=== PATIENT | female | born 1990 | race Two or more races ===

== ENCOUNTER 2019-10-08 00:43 | Inpatient (IN) | payer OTHER, MEDICAID ==
[~2019-10-08] VITALS: Ht 152.4 cm; Wt 73.5 kg
[2019-10-08 01:35] LABS: BILIRUBIN,URINE NEGATIVE (NEG); CLARITY,URINE CLEAR; COLOR,URINE YELLOW; NITRITE,URINE NEGATIVE (NEG); PH,URINE 7.5 (<5.0-8.0); PROTEIN,URINE NEGATIVE (NEG-TRACE); UROBILINOGEN,URINE 0.2 mg/dL (0.2 mg/dL)
[2019-10-08 01:40] LABS: BACTERIA,URINE MODERATE /HPF (0-FEW); SQUAMOUS EPITHELIAL CELL,UR MANY /LPF
[2019-10-08] MEDS: IV RINGERS,LACTATED 1000ML 1,000 ML IV SCH ×4 (01:50→21:33)
[2019-10-08 01:54] LABS: BARBITURATES NEG (NEG); BENZODIAZEPINES NEG (NEG); CANNABINOIDS NEG (NEG); COCAINE NEG (NEG); METHADONE NEG (NEG); OPIATES NEG (NEG); PHENCYCLIDINE NEG (NEG)
[2019-10-08 01:56] LABS: AMPHETAMINE/METHAMPHETAMINE NEG (NEG)
[2019-10-08] MEDS ORDERED: fentaNYL PF VIAL 100 MCG/2 ML VIAL IM ONE (03:00)
--- NOTE | 2019-10-08 04:00 | RAD ---
Obstetric ultrasound limited: Reason for examination: Unsure of presentation and estimated date of confinement. Single viable intrauterine gestation is present with the fetus in cephalic presentation. The cervical does not visualize. Cardiac activity is present with a rate of 137 bpm. Amniotic fluid index is 4.7 cm. The placenta is anterior with no previa or abruption evident. Biparietal diameter is 9.43 cm corresponding to gestational age 38 weeks 3 days. Head circumference is 33.84 cm corresponding to gestational age of 38 weeks 6 days. Abdominal circumference is 34.48 cm corresponding to gestational age 38 weeks 3 days. Femur length is 7.43 cm corresponding to gestational age of 38 weeks 0 days. Estimated weight is 34 71 g or approximately 7 lbs. 10 oz. Cephalic index is 83.9. Head circumference to abdominal circumference ratio is 0.98. Femur length to biparietal diameter ratio 70.8. Femur length to head circumference ratio is 22.0. Femur length to abdominal circumference ratio is 21.8. Estimated gestational age is 38 weeks 3 days with estimated date of confinement of 10/19/2019. IMPRESSION: Single viable intrauterine gestation with mean gestational age estimated at 38 weeks 3 days with estimated date of confinement of 10/19/2019. Fetus is in cephalic presentation. Cervix is not visualized. Amniotic fluid index is 4.7 cm. Placenta is anterior with no previa or abruption. Electronically signed by: Andressa Carranza MD (10/08/2019 3:57 AM) [id number]
[2019-10-08] MEDS ORDERED: IBUPROFEN 400 MG TABLET. PO PRN (04:45)
[2019-10-08] MEDS ORDERED: OXYTOCIN 30 UNIT/500 ML PREMIX 500 ML IV PRN ×3 (04:45→09:45)
[2019-10-08] MEDS ORDERED: 0.9 % SODIUM CHLORIDE 10 ML DISP.SYRIN. IV PRN ×2 (04:45→09:45)
[2019-10-08] MEDS ORDERED: BUTORPHANOL 2 MG/ML VIAL. IVP PRN (04:45)
[2019-10-08] MEDS ORDERED: LIDOCAINE 1% PF 30 ML VIAL. INJ PRN (04:45)
[2019-10-08] MEDS ORDERED: TERBUTALINE 1 MG/ML VIAL. SQ PRN (04:45)
[2019-10-08 05:30] LABS: BASO # 0.1 x10^3/uL (0.0-0.2); BASO % 0 % (0-3); EOS # 0.1 x10^3/uL (0.0-0.7); EOS % 1 % (0-3); HEMATOCRIT 35.1 % (36.0-47.0); HEMOGLOBIN 12.1 g/dL (12.0-15.5); LYMPH # 2.6 x10^3/uL (1.0-4.8); LYMPH % 16 % (24-48); MEAN CORPUSCULAR HEMOGLOBIN 34 pg (25-35); MEAN CORPUSCULAR HGB CONC 34 g/dL (31-37); MEAN CORPUSCULAR VOLUME 97 fL (79-100); MONO # 0.8 x10^3/uL (0.0-1.1); MONO % 5 % (0-9); NEUT # 12.7 x10^3/uL (1.8-7.7); NEUT % 78 % (31-73); PLATELET COUNT 339 x10^3/uL (140-400); RED BLOOD COUNT 3.61 x10^6/uL (3.50-5.40); WHITE BLOOD COUNT 16.3 x10^3/uL (4.0-11.0)
[2019-10-08] MEDS ORDERED: OXYTOCIN PREMIX 30 UNIT/500 ML NS BAG. IV ONE (06:00)
--- NOTE | 2019-10-08 07:28 | PDOC1 ---
OB - History Hx of Present Care: Good Care Ultrasounds: Normal mid trimester US Obstetrical Complications: None Medical Complications: None Past Family/Social History * Past Medical, Surgical, Family and Obstetric Histories reviewed from chart. Rubella: Immune RPR/VDRL: Negative GBS Status: Negative HBsAG: Negative OB - Chief Complaint & HPI Date of Admission: Date of Admission: Oct 08, 2019 at 00:43 Chief Complaint/History : 2 Para: 1 EGA: 37 Reason for admission: active labor Admission Nurse Assessment Rev: Yes OB - Admission Exam Physical Exam Vitals: VS - Last 72 Hours, by Label Date Time Temp Pulse Resp B/P (MAP) Pulse Ox O2 Delivery O2 Flow Rate FiO2 10/08/19 05:30 18 Room Air 10/08/19 05:05 18 Room Air 10/08/19 02:54 18 HEENT: Normal Heart: Regular Rate Lungs: Clear Abdomen: Gravid, Non tender, Soft Extremities: Edema Reflexes: Normal Cervical Dilatation: 3cm Effacement: 75% Station: -3 Membranes: Intact Heart Rate: Normal Accelerations: Accelerations Present Decelerations: No decelerations Contractions on Admission: 6-10 Minutes Apart Intensity: Moderate Text A: 37 wks IUP Active labor P: Admit labor management. SHANEKA SIGALA Jr, MD Oct 08, 2019 07:28
[2019-10-08] MEDS ORDERED: CITRIC ACID/SODIUM CITRATE 30 ML SOLUTION. PO ONE (07:45)
[2019-10-08] MEDS ORDERED: fentaNYL PF VIAL 100 MCG/2 ML VIAL ONE (08:39)
[2019-10-08] MEDS ORDERED: MORPHINE PF 10 MG/10 ML AMPUL. ONE (08:39)
[2019-10-08] MEDS ORDERED: SUCCINYLCHOLINE 200 MG/10 ML VIAL. ONE (08:41)
[2019-10-08] MEDS ORDERED: SEVOFLURANE 61 TO 120 MINUTES. IH ONE (08:42)
[2019-10-08] MEDS ORDERED: PROPOFOL 10 MG/ML (20ML) VIAL. IV ONE (08:42)
[2019-10-08] MEDS ORDERED: DEXAMETHASONE SOD PHOS 4 MG/ML VIAL ONE (08:42)
[2019-10-08] MEDS ORDERED: ONDANSETRON PF 4 MG/2 ML VIAL. ONE (08:42)
[2019-10-08] MEDS ORDERED: LIDOCAINE 2% PF 5 ML VIAL. ONE (08:42)
[2019-10-08] MEDS ORDERED: OXYTOCIN 10 UNIT/ML VIAL. ONE ×5 (08:46→09:35)
[2019-10-08] MEDS ORDERED: miSOPROStol 200 MCG TABLET ONE (09:00)
[2019-10-08] MEDS ORDERED: PHENYLEPHRINE in 0.9% NACL PF 1 MG/10 ML SYRINGE. IV ONE (09:01)
[2019-10-08] MEDS ORDERED: ceFAZolin SODIUM IV Push 1 GM VIAL. IVP ONE ×2 (09:05)
[2019-10-08 09:07] LABS: % BANDS 25 % (0-9); % LYMPHS 14 % (24-48); % METAS 1 % (0-0); % MONOS 8 % (0-10); % MYELOS 1 % (0-0); % SEGS 51 % (35-66)
[2019-10-08 09:08] LABS: PLT ESTIMATE ADEQUATE (ADEQUATE)
[2019-10-08] MEDS ORDERED: ePHEDrine PF IN SALINE 50 MG/10 ML SYRINGE. IV ONE (09:11)
[2019-10-08] MEDS: FERROUS SULFATE 325 MG TABLET. PO SCH (09:20)
[2019-10-08] MEDS ORDERED: IV NORMAL SALINE 1000ML BAG 1,000 ML IV SCH (09:34)
--- NOTE | 2019-10-08 09:34 | PDOC4 ---
OB Operative Note Date: Oct 08, 2019 PRE OP DIAGNOSIS: NRFHT (FTD) POST OP DIAGNOSIS: Other (same) OPERATION PERFORMED: L [facility] Surgeon Dr. Cooney Anesthesia: Gen Blood Loss 600 ml Specimen placenta and infant OB Findings: Position (Vertex), Sex (Male), (8/9), Weight (8 Lb 12 oz) Complications none Additional Remarks pt. SHANEKA Goldstein Jr, MD Oct 08, 2019 09:34
[2019-10-08] MEDS ORDERED: NALOXONE 0.4 MG/ML VIAL. IV PRN (09:45)
[2019-10-08] MEDS ORDERED: MAG HYDROX/ALUMINUM HYD/SIMETH 30 ML ORAL.SUSP PO PRN (09:45)
[2019-10-08] MEDS ORDERED: diphenhydrAMINE ORAL ELIXIR 12.5 MG/5 ML ML PO PRN (09:45)
[2019-10-08] MEDS ORDERED: ONDANSETRON PF 4 MG/2 ML VIAL. IV PRN (09:45)
[2019-10-08] MEDS ORDERED: ZOLPIDEM 5 MG TABLET. PO PRN (09:45)
[2019-10-08] MEDS ORDERED: SIMETHICONE 80 MG TAB.CHEW PO PRN (09:45)
[2019-10-08] MEDS ORDERED: KETOROLAC 30 MG/ML VIAL. IV PRN ×2 (09:45→10:15)
--- NOTE | 2019-10-08 09:48 | OP ---
DATE OF SURGERY: 10/08/2019 PREOPERATIVE DIAGNOSES: 1. A 37 weeks intrauterine . 2. Active labor. 3. Failure to descend. 4. intolerance to labor. POSTOPERATIVE DIAGNOSES: 1. A 37 weeks intrauterine . 2. Active labor. 3. Failure to descend. 4. intolerance to labor. PROCEDURE: Primary low transverse section. SURGEON: Shaneka Cooney MD ANESTHESIA: GETA. ESTIMATED BLOOD LOSS: 600 mL. COMPLICATIONS: None. FINDINGS: Viable male infant, Apgars 8 and 9, weight 8 pounds 12 ounces. Three-vessel cord placenta delivered manually. SUMMARY: A 29-year-old 2, para 1 at 37 weeks, presented in active labor. The patient had progressed up to 10 cm. She had pushed for almost 2 hours and then began having intolerance to labor. The patient required emergent section. She was counseled on the risks, benefits, and expectations and voiced clear understanding to proceed via the gis application developer. DESCRIPTION OF PROCEDURE: The patient was taken to surgery suite and placed in dorsal supine position. She was prepped with ChloraPrep and draped in a sterile fashion. After adequate anesthesia, Pfannenstiel skin incision was made with scalpel down to and through the fascia. Fascia was extended laterally using curved Combs scissors. The superior edge of the fascia was grasped with two Kaitlin clamps and dissected free of the abdominal rectus muscle using blunt dissection along with curved Combs scissors. The same process took place inferiorly. The abdominal rectus muscle dissected bluntly at the midline. Peritoneum was entered sharply with Metzenbaum scissors. This incision was extended superiorly as well as inferiorly. Ez ring retractor was placed. A low transverse hysterotomy incision was made with scalpel down to the . Hysterotomy incision was extended laterally and superiorly digitally. With the aid of fundal pressure, the 's head was delivered in a smooth atraumatic manner. With additional fundal pressure, the anterior shoulder was delivered followed by posterior shoulder and rest of the male was delivered. Infant was suctioned with bulb syringe orally and nasally, umbilical cord blood was then obtained as well as arterial pH was obtained. was handed to waiting nursing staff. Three-vessel cord placenta was delivered manually. The uterus was then exteriorized, cleared of clot and debris with moist lap. Hysterotomy incision was reapproximated using #1 Vicryl suture in running locked fashion and imbricated layer of #1 Vicryl suture was utilized in a running fashion for better hemostasis. [id number] suture was placed in the midline of the hysterotomy incision for better hemostasis. An 800 mcg of Cytotec was placed intrauterinely prior to closure of the uterine incision. The uterus then palpated firm. Fallopian tubes and ovaries appeared normal bilaterally. Posterior cul-de-sac was cleared of clot and debris with moist lap. The uterus was then returned to the abdomen. Pericolic gutters were cleared of clot and debris with moist lap. Hysterotomy incision was reviewed and was hemostatic. Ez ring retractor was removed. Peritoneum was reapproximated with #1 Vicryl suture in running fashion. Abdominal rectus muscles were reapproximated using #1 Vicryl suture in an interrupted fashion. Fascia was reapproximated using 0 Vicryl suture in running fashion. Skin was reapproximated using 4-0 Vicryl suture in subcuticular manner. The patient tolerated the procedure well and was taken to recovery room in stable condition. Sponge and needle count correct x 3. SHANEKA COONEY MD DR: OBDULIA/maite JOB#: [id number] / [id number]
[2019-10-08 15:02] VITALS: BP 114/63
[2019-10-08 16:30] VITALS: BP 119/64
[2019-10-08 20:15] VITALS: BP 100/53
[2019-10-08 21:05] VITALS: BP 98/56
[2019-10-08] MEDS: ACETAMINOPHEN 500 MG TABLET PO PRN (21:34)
[2019-10-08] MEDS: GENTAMICIN SULFATE 230 MG in IV NORMAL SALINE 100ML 100 ML IV SCH (21:36)
[2019-10-08] MEDS: AMPICILLIN SODIUM 2 GM in IV NORMAL SALINE 100ML 100 ML IV SCH (22:46)
[2019-10-09] MEDS ORDERED: SULBACTAM IV SCH
[2019-10-09] MEDS ORDERED: NORMAL SALINE IV SCH
[2019-10-09] MEDS ORDERED: AMPICILLIN IV SCH
[2019-10-09 01:00] VITALS: BP 95/50
[2019-10-09 04:41] LABS: BASO % 0 % (0-3); EOS # 0.1 x10^3/uL (0.0-0.7); EOS % 0 % (0-3); HEMATOCRIT 28.6 % (36.0-47.0); HEMOGLOBIN 9.7 g/dL (12.0-15.5); LYMPH # 3.5 x10^3/uL (1.0-4.8); LYMPH % 22 % (24-48); MEAN CORPUSCULAR HEMOGLOBIN 33 pg (25-35); MEAN CORPUSCULAR HGB CONC 34 g/dL (31-37); MEAN CORPUSCULAR VOLUME 98 fL (79-100); MONO % 6 % (0-9); NEUT # 11.2 x10^3/uL (1.8-7.7); NEUT % 71 % (31-73); PLATELET COUNT 293 x10^3/uL (140-400); RED BLOOD COUNT 2.91 x10^6/uL (3.50-5.40); RED CELL DISTRIBUTION WIDTH 14.6 % (11.5-14.5); WHITE BLOOD COUNT 15.8 x10^3/uL (4.0-11.0)
[2019-10-09] MEDS: AMPICILLIN SODIUM 2 GM in IV NORMAL SALINE 100ML 100 ML IV SCH ×5 (04:56→23:35)
[2019-10-09 05:00] VITALS: BP 87/52
[2019-10-09] MEDS: IV RINGERS,LACTATED 1000ML 1,000 ML IV SCH (06:03)
[2019-10-09] MEDS: ACETAMINOPHEN 500 MG TABLET PO PRN (08:10)
[2019-10-09] MEDS: MULTIVITAMIN with MINERAL TABLET. PO SCH (08:11)
--- NOTE | 2019-10-09 09:04 | PDOC ---
OB Progress Note Date of Service 10/09/19 Time of Evaluation 0900 Notes Pt. feeling well. Pt. continues to have edematous vulva and will keep bustillo cath. Lab Laboratory Tests Test 10/08/19 01:29 10/08/19 01:45 10/08/19 02:50 10/09/19 03:30 Urine Collection Type Unknown Urine Color Yellow Urine Clarity Clear Urine pH 7.5 (<5.0-8.0) Urine Specific [place] 1.015 (1.000-1.030) Urine Protein Negative mg/dL (NEG-TRACE) Urine Glucose (UA) Negative mg/dL (NEG) Urine Ketones (Stick) Negative mg/dL (NEG) Urine Blood Moderate (NEG) Urine Nitrite Negative (NEG) Urine Bilirubin Negative (NEG) Urine Urobilinogen Dipstick 0.2 mg/dL (0.2 mg/dL) Urine Leukocyte Esterase Small (NEG) Urine RBC 3-5 /HPF (0-2) Urine WBC 5-10 /HPF (0-4) Urine Squamous Epithelial Cells Many /LPF Urine Bacteria Moderate /HPF (0-FEW) Urine Mucus Slight /LPF Urine Opiates Screen Neg (NEG) Urine Methadone Screen Neg (NEG) Urine Barbiturates Neg (NEG) Urine Phencyclidine Screen Neg (NEG) Urine Amphetamine/Methamphetamine Neg (NEG) Urine Benzodiazepines Screen Neg (NEG) Urine Cocaine Screen Neg (NEG) Urine Cannabinoids Screen Neg (NEG) Urine Ethyl Alcohol Neg (NEG) White Blood Count 16.3 x10^3/uL (4.0-11.0) 15.8 x10^3/uL (4.0-11.0) Red Blood Count 3.61 x10^6/uL (3.50-5.40) 2.91 x10^6/uL (3.50-5.40) Hemoglobin 12.1 g/dL (12.0-15.5) 9.7 g/dL (12.0-15.5) Hematocrit 35.1 % (36.0-47.0) 28.6 % (36.0-47.0) Mean Corpuscular Volume 97 fL (79-100) 98 fL (79-100) Mean Corpuscular Hemoglobin 34 pg (25-35) 33 pg (25-35) Mean Corpuscular Hemoglobin Concent 34 g/dL (31-37) 34 g/dL (31-37) Red Cell Distribution Width 15.0 % (11.5-14.5) 14.6 % (11.5-14.5) Platelet Count 339 x10^3/uL (140-400) 293 x10^3/uL (140-400) Neutrophils (%) (Auto) 78 % (31-73) 71 % (31-73) Lymphocytes (%) (Auto) 16 % (24-48) 22 % (24-48) Monocytes (%) (Auto) 5 % (0-9) 6 % (0-9) Eosinophils (%) (Auto) 1 % (0-3) 0 % (0-3) Basophils (%) (Auto) 0 % (0-3) 0 % (0-3) Neutrophils # (Auto) 12.7 x10^3/uL (1.8-7.7) 11.2 x10^3/uL (1.8-7.7) Lymphocytes # (Auto) 2.6 x10^3/uL (1.0-4.8) 3.5 x10^3/uL (1.0-4.8) Monocytes # (Auto) 0.8 x10^3/uL (0.0-1.1) 1.0 x10^3/uL (0.0-1.1) Eosinophils # (Auto) 0.1 x10^3/uL (0.0-0.7) 0.1 x10^3/uL (0.0-0.7) Basophils # (Auto) 0.1 x10^3/uL (0.0-0.2) 0.0 x10^3/uL (0.0-0.2) Segmented Neutrophils % 51 % (35-66) Band Neutrophils % 25 % (0-9) Lymphocytes % 14 % (24-48) Monocytes % 8 % (0-10) Metamyelocytes % 1 % (0-0) Myelocytes % 1 % (0-0) Platelet Estimate Adequate (ADEQUATE) Treponema pallidum Antibody Nonreactive (Nonreactive) Coronavirus (PCR) Not detected (Not Detected) SARS-CoV-2 Antigen (Rapid) Negative (NEGATIVE) Laboratory Tests Test 10/09/19 03:30 White Blood Count 15.8 x10^3/uL (4.0-11.0) Red Blood Count 2.91 x10^6/uL (3.50-5.40) Hemoglobin 9.7 g/dL (12.0-15.5) Hematocrit 28.6 % (36.0-47.0) Mean Corpuscular Volume 98 fL (79-100) Mean Corpuscular Hemoglobin 33 pg (25-35) Mean Corpuscular Hemoglobin Concent 34 g/dL (31-37) Red Cell Distribution Width 14.6 % (11.5-14.5) Platelet Count 293 x10^3/uL (140-400) Neutrophils (%) (Auto) 71 % (31-73) Lymphocytes (%) (Auto) 22 % (24-48) Monocytes (%) (Auto) 6 % (0-9) Eosinophils (%) (Auto) 0 % (0-3) Basophils (%) (Auto) 0 % (0-3) Neutrophils # (Auto) 11.2 x10^3/uL (1.8-7.7) Lymphocytes # (Auto) 3.5 x10^3/uL (1.0-4.8) Monocytes # (Auto) 1.0 x10^3/uL (0.0-1.1) Eosinophils # (Auto) 0.1 x10^3/uL (0.0-0.7) Basophils # (Auto) 0.0 x10^3/uL (0.0-0.2) Medications Current Medications Ringer's Solution 1,000 ml @ 125 mls/hr Q8H IV Last administered on 10/09/19at 06:03; Start 10/08/19 at 01:00 Fentanyl Citrate (Fentanyl 2ml Vial) 100 mcg 1X ONCE IM Last administered on 10/08/19at 02:54; Start 10/08/19 at 03:00; Stop 10/08/19 at 03:01; Status DC Sodium Chloride (Normal Saline Flush) 3 ml QSHIFT PRN IV AFTER MEDS AND BLOOD DRAWS; Start 10/08/19 at 04:45 Butorphanol Tartrate (Stadol) 2 mg PRN Q1HR PRN IVP Severe labor pain Last administered on 10/08/19at 05:05; Start 10/08/19 at 04:45; Stop 10/08/19 at 09:36; Status DC Terbutaline Sulfate (Brethine) 0.25 mg 1X PRN PRN SQ SEE COMMENTS; Start 10/08/19 at 04:45; Stop 10/09/19 at 04:45; Status DC Lidocaine HCl (Xylocaine 1% Pf 30ml Vial) 30 ml 1X PRN PRN INJ SEE COMMENTS; Start 10/08/19 at 04:45; Stop 10/10/19 at 04:44 Oxytocin/Sodium Chloride 500 ml @ 0 mls/hr CONT PRN IV SEE I/O RECORD; Start 10/08/19 at 04:45 Oxytocin/Sodium Chloride 500 ml @ 0 mls/hr CONT PRN PRN IV Post delivery bleeding; Start 10/08/19 at 04:45 Ibuprofen (Motrin) 800 mg PRN Q6HRS PRN PO PAIN; Start 10/08/19 at 04:45 Citric Acid/ Sodium Citrate (Bicitra) 30 ml 1X ONCE PO Last administered on 10/08/19at 08:28; Start 10/08/19 at 07:45; Stop 10/08/19 at 07:48; Status DC Morphine Sulfate (Morphine Preservative Free) 10 mg STK-MED ONCE .ROUTE ; Start 10/08/19 at 08:39; Stop 10/08/19 at 08:39; Status DC Fentanyl Citrate (Fentanyl 2ml Vial) 100 mcg STK-MED ONCE .ROUTE ; Start 10/08/19 at 08:39; Stop 10/08/19 at 08:39; Status DC Succinylcholine Chloride (Anectine) 200 mg STK-MED ONCE .ROUTE ; Start 10/08/19 at 08:41; Stop 10/08/19 at 08:42; Status DC Propofol (Diprivan) 200 mg STK-MED ONCE IV ; Start 10/08/19 at 08:42; Stop 10/08/19 at 08:42; Status DC Lidocaine HCl (Lidocaine Pf 2% Vial) 5 ml STK-MED ONCE .ROUTE ; Start 10/08/19 at 08:42; Stop 10/08/19 at 08:42; Status DC Ondansetron HCl (Zofran) 4 mg STK-MED ONCE .ROUTE ; Start 10/08/19 at 08:42; Stop 10/08/19 at 08:42; Status DC Dexamethasone Sodium Phosphate (Decadron) 4 mg STK-MED ONCE .ROUTE ; Start 10/08/19 at 08:42; Stop 10/08/19 at 08:42; Status DC Sevoflurane (Ultane) 60 ml STK-MED ONCE IH ; Start 10/08/19 at 08:42; Stop 10/08/19 at 08:43; Status DC Oxytocin (Pitocin) 10 unit STK-MED ONCE .ROUTE ; Start 10/08/19 at 08:46; Stop 10/08/19 at 08:46; Status DC Oxytocin (Pitocin) 10 unit STK-MED ONCE .ROUTE ; Start 10/08/19 at 08:46; Stop 10/08/19 at 08:46; Status DC Oxytocin (Pitocin) 10 unit STK-MED ONCE .ROUTE ; Start 10/08/19 at 08:46; Stop 10/08/19 at 08:46; Status DC Oxytocin/Sodium Chloride (Oxytocin Premix Infusion) 30 unit STK-MED ONCE IV ; Start 10/08/19 at 06:00; Stop 10/08/19 at 08:59; Status DC Misoprostol (Cytotec 200mcg Tab) 200 mcg STK-MED ONCE .ROUTE ; Start 10/08/19 at 09:00; Stop 10/08/19 at 09:01; Status DC Phenylephrine HCl (PHENYLEPHRINE in 0.9% NACL PF) 1 mg STK-MED ONCE IV ; Start 10/08/19 at 09:01; Stop 10/08/19 at 09:01; Status DC Cefazolin Sodium (Ancef) 1 gm STK-MED ONCE IVP ; Start 10/08/19 at 09:05; Stop 10/08/19 at 09:05; Status DC Cefazolin Sodium (Ancef) 1 gm STK-MED ONCE IVP ; Start 10/08/19 at 09:05; Stop 10/08/19 at 09:05; Status DC Ephedrine Sulfate (ePHEDrine PF IN SALINE SYRINGE) 50 mg STK-MED ONCE IV ; Start 10/08/19 at 09:11; Stop 10/08/19 at 09:11; Status DC Oxytocin (Pitocin) 10 unit STK-MED ONCE .ROUTE ; Start 10/08/19 at 09:35; Stop 10/08/19 at 09:35; Status DC Oxytocin (Pitocin) 10 unit STK-MED ONCE .ROUTE ; Start 10/08/19 at 09:35; Stop 10/08/19 at 09:35; Status DC Sodium Chloride (Normal Saline Flush) 3 ml QSHIFT PRN IV AFTER MEDS AND BLOOD DRAWS; Start 10/08/19 at 09:45 Oxytocin/Sodium Chloride 500 ml @ 125 mls/hr CONT PRN IV EXCESSIVE POST- BLEEDING; Start 10/08/19 at 09:45; Stop 10/08/19 at 17:44; Status DC Ibuprofen (Motrin) 800 mg PRN Q8HRS PRN PO INFLAMMATION; Start 10/08/19 at 09:45 Ondansetron HCl (Zofran) 4 mg PRN Q6HRS PRN IV NAUSEA/VOMITING; Start 10/08/19 at 09:45 Docusate Sodium (Colace) 100 mg PRN BID PRN PO HARD STOOL; Start 10/08/19 at 09:45 Al Hydroxide/Mg Hydroxide (Mylanta Plus Xs) 30 ml PRN Q4HRS PRN PO HEARTBURN / GAS; Start 10/08/19 at 09:45 Simethicone (Gas-X) 80 mg PRN AFTMEALHC PRN PO GAS / BLOATING; Start 10/08/19 at 09:45 Diphenhydramine HCl (Benadryl Oral Elixir) 12.5 mg PRN Q6HRS PRN PO ITCHING; Start 10/08/19 at 09:45 Ferrous Sulfate (Feosol) 325 mg BIDWMEALS PO ; Start 10/08/19 at 17:00 Zolpidem Tartrate (Ambien) 5 mg PRN QHS PRN PO INSOMNIA, MAY REPEAT X1; Start 10/08/19 at 09:45 Oxycodone/ Acetaminophen (Percocet 5/325) 2 tab PRN Q4HRS PRN PO MODERATE PAIN, SEVERE PAIN; Start 10/08/19 at 09:45 Ketorolac Tromethamine (Toradol 30mg Vial) 30 mg PRN Q6HRS PRN IV PAIN Last administered on 10/09/19at 08:11; Start 10/08/19 at 09:45; Stop 10/13/19 at 09:44 Multivitamins (Thera M Plus) 1 tab DAILY PO Last administered on 10/09/19at 08:11; Start 10/09/19 at 09:00 Fentanyl Citrate 30 ml @ 0 mls/hr CONT PRN PRN IV PER PROTOCOL Last administered on 10/08/19at 10:24; Start 10/08/19 at 09:45 Naloxone HCl (Narcan) 0.4 mg PRN Q2MIN PRN IV SEE INSTRUCTIONS; Start 10/08/19 at 09:45 Sodium Chloride 1,000 ml @ 25 mls/hr Q24H IV ; Start 10/08/19 at 09:34 Ketorolac Tromethamine (Toradol 30mg Vial) 30 mg PRN Q6HRS PRN IV PAIN; Start 10/08/19 at 10:15; Stop 10/13/19 at 10:14 Ampicillin Sodium/ Sulbactam Sodium 2 gm/Sodium Chloride 100 ml @ 200 mls/hr Q6HRS IV ; Start 10/09/19 at 00:00; Status UNV Gentamicin Sulfate 230 mg/ Sodium Chloride 105.75 ml @ 105.75 mls/hr Q24H IV Last administered on 10/08/19at 21:36; Start 10/08/19 at 22:00 Acetaminophen (Tylenol) 1,000 mg PRN Q6HRS PRN PO FEVER > 100.3'F Last admini stered on 10/09/19at 08:10; Start 10/08/19 at 21:15 Ampicillin Sodium 2 gm/Sodium Chloride 100 ml @ 200 mls/hr Q6HRS IV Last ad ministered on 10/09/19at 04:56; Start 10/08/19 at 23:00 Exam Abd: soft, mild tenderness, fundus firm Incision site: clean, dry and intact Assessment POD#1 s/p c/s Post endometritis: Tmax 100.8 'F Plan of Care: Continue current Tx, Mgmt SHANEKA SIGALA Jr, MD Oct 09, 2019 09:04
[2019-10-09] MEDS: DOCUSATE SODIUM 100 MG CAPSULE. PO PRN (12:24)
[2019-10-09] MEDS: oxyCODONE/APAP 5/325 1 TAB TABLET PO PRN ×2 (12:24→20:02)
[2019-10-09 13:00] VITALS: BP 108/57
[2019-10-09 20:08] VITALS: BP 108/65
[2019-10-09] MEDS: GENTAMICIN SULFATE 230 MG in IV NORMAL SALINE 100ML 100 ML IV SCH (22:03)
[2019-10-10] VITALS: BP 101/55
[2019-10-10] MEDS: AMPICILLIN SODIUM 2 GM in IV NORMAL SALINE 100ML 100 ML IV SCH ×3 (05:39→20:41)
[2019-10-10 05:54] VITALS: BP 112/72
[2019-10-10] MEDS: oxyCODONE/APAP 5/325 1 TAB TABLET PO PRN ×4 (06:33→21:38)
[2019-10-10] MEDS ORDERED: MAGNESIUM HYDROXIDE 2,400 MG/30 ML ORAL.SUSP. PO PRN (07:15)
[2019-10-10] MEDS: FERROUS SULFATE 325 MG TABLET. PO SCH ×2 (10:47→17:52)
[2019-10-10] MEDS: MULTIVITAMIN with MINERAL TABLET. PO SCH (10:47)
[2019-10-10] MEDS: DOCUSATE SODIUM 100 MG CAPSULE. PO PRN (10:47)
[2019-10-10 12:04] VITALS: BP 102/68
--- NOTE | 2019-10-10 12:17 | PDOC ---
OB Progress Note Date of Service 10/10/19 Time of Evaluation 1215 Notes Pt. feeling well. Pain controlled. Last Tmax 99'F. Lab Laboratory Tests Test 10/09/19 03:30 White Blood Count 15.8 x10^3/uL (4.0-11.0) Red Blood Count 2.91 x10^6/uL (3.50-5.40) Hemoglobin 9.7 g/dL (12.0-15.5) Hematocrit 28.6 % (36.0-47.0) Mean Corpuscular Volume 98 fL (79-100) Mean Corpuscular Hemoglobin 33 pg (25-35) Mean Corpuscular Hemoglobin Concent 34 g/dL (31-37) Red Cell Distribution Width 14.6 % (11.5-14.5) Platelet Count 293 x10^3/uL (140-400) Neutrophils (%) (Auto) 71 % (31-73) Lymphocytes (%) (Auto) 22 % (24-48) Monocytes (%) (Auto) 6 % (0-9) Eosinophils (%) (Auto) 0 % (0-3) Basophils (%) (Auto) 0 % (0-3) Neutrophils # (Auto) 11.2 x10^3/uL (1.8-7.7) Lymphocytes # (Auto) 3.5 x10^3/uL (1.0-4.8) Monocytes # (Auto) 1.0 x10^3/uL (0.0-1.1) Eosinophils # (Auto) 0.1 x10^3/uL (0.0-0.7) Basophils # (Auto) 0.0 x10^3/uL (0.0-0.2) Medications Current Medications Ringer's Solution 1,000 ml @ 125 mls/hr Q8H IV Last administered on 10/09/19at 06:03; Start 10/08/19 at 01:00 Fentanyl Citrate (Fentanyl 2ml Vial) 100 mcg 1X ONCE IM Last administered on 10/08/19at 02:54; Start 10/08/19 at 03:00; Stop 10/08/19 at 03:01; Status DC Sodium Chloride (Normal Saline Flush) 3 ml QSHIFT PRN IV AFTER MEDS AND BLOOD DRAWS; Start 10/08/19 at 04:45; Stop 10/10/19 at 11:29; Status DC Butorphanol Tartrate (Stadol) 2 mg PRN Q1HR PRN IVP Severe labor pain Last administered on 10/08/19at 05:05; Start 10/08/19 at 04:45; Stop 10/08/19 at 09:36; Status DC Terbutaline Sulfate (Brethine) 0.25 mg 1X PRN PRN SQ SEE COMMENTS; Start 10/08/19 at 04:45; Stop 10/09/19 at 04:45; Status DC Lidocaine HCl (Xylocaine 1% Pf 30ml Vial) 30 ml 1X PRN PRN INJ SEE COMMENTS; Start 10/08/19 at 04:45; Stop 10/10/19 at 04:44; Status DC Oxytocin/Sodium Chloride 500 ml @ 0 mls/hr CONT PRN IV SEE I/O RECORD; Start 10/08/19 at 04:45 Oxytocin/Sodium Chloride 500 ml @ 0 mls/hr CONT PRN PRN IV Post delivery bleeding; Start 10/08/19 at 04:45 Ibuprofen (Motrin) 800 mg PRN Q6HRS PRN PO PAIN Last administered on 10/10/19at 05:39; Start 10/08/19 at 04:45; Stop 10/10/19 at 07:20; Status DC Citric Acid/ Sodium Citrate (Bicitra) 30 ml 1X ONCE PO Last administered on 10/08/19at 08:28; Start 10/08/19 at 07:45; Stop 10/08/19 at 07:48; Status DC Morphine Sulfate (Morphine Preservative Free) 10 mg STK-MED ONCE .ROUTE ; Start 10/08/19 at 08:39; Stop 10/08/19 at 08:39; Status DC Fentanyl Citrate (Fentanyl 2ml Vial) 100 mcg STK-MED ONCE .ROUTE ; Start 10/08/19 at 08:39; Stop 10/08/19 at 08:39; Status DC Succinylcholine Chloride (Anectine) 200 mg STK-MED ONCE .ROUTE ; Start 10/08/19 at 08:41; Stop 10/08/19 at 08:42; Status DC Propofol (Diprivan) 200 mg STK-MED ONCE IV ; Start 10/08/19 at 08:42; Stop 10/08/19 at 08:42; Status DC Lidocaine HCl (Lidocaine Pf 2% Vial) 5 ml STK-MED ONCE .ROUTE ; Start 10/08/19 at 08:42; Stop 10/08/19 at 08:42; Status DC Ondansetron HCl (Zofran) 4 mg STK-MED ONCE .ROUTE ; Start 10/08/19 at 08:42; Stop 10/08/19 at 08:42; Status DC Dexamethasone Sodium Phosphate (Decadron) 4 mg STK-MED ONCE .ROUTE ; Start 10/08/19 at 08:42; Stop 10/08/19 at 08:42; Status DC Sevoflurane (Ultane) 60 ml STK-MED ONCE IH ; Start 10/08/19 at 08:42; Stop 10/08/19 at 08:43; Status DC Oxytocin (Pitocin) 10 unit STK-MED ONCE .ROUTE ; Start 10/08/19 at 08:46; Stop 10/08/19 at 08:46; Status DC Oxytocin (Pitocin) 10 unit STK-MED ONCE .ROUTE ; Start 10/08/19 at 08:46; Stop 10/08/19 at 08:46; Status DC Oxytocin (Pitocin) 10 unit STK-MED ONCE .ROUTE ; Start 10/08/19 at 08:46; Stop 10/08/19 at 08:46; Status DC Oxytocin/Sodium Chloride (Oxytocin Premix Infusion) 30 unit STK-MED ONCE IV ; Start 10/08/19 at 06:00; Stop 10/08/19 at 08:59; Status DC Misoprostol (Cytotec 200mcg Tab) 200 mcg STK-MED ONCE .ROUTE ; Start 10/08/19 at 09:00; Stop 10/08/19 at 09:01; Status DC Phenylephrine HCl (PHENYLEPHRINE in 0.9% NACL PF) 1 mg STK-MED ONCE IV ; Start 10/08/19 at 09:01; Stop 10/08/19 at 09:01; Status DC Cefazolin Sodium (Ancef) 1 gm STK-MED ONCE IVP ; Start 10/08/19 at 09:05; Stop 10/08/19 at 09:05; Status DC Cefazolin Sodium (Ancef) 1 gm STK-MED ONCE IVP ; Start 10/08/19 at 09:05; Stop 7/29/20 at 09:05; Status DC Ephedrine Sulfate (ePHEDrine PF IN SALINE SYRINGE) 50 mg STK-MED ONCE IV ; Star t 10/08/19 at 09:11; Stop 10/08/19 at 09:11; Status DC Oxytocin (Pitocin) 10 unit STK-MED ONCE .ROUTE ; Start 10/08/19 at 09:35; Stop 10/08/19 at 09:35; Status DC Oxytocin (Pitocin) 10 unit STK-MED ONCE .ROUTE ; Start 10/08/19 at 09:35; Stop 10/08/19 at 09:35; Status DC Sodium Chloride (Normal Saline Flush) 3 ml QSHIFT PRN IV AFTER MEDS AND BLOOD DRAWS; Start 10/08/19 at 09:45 Oxytocin/Sodium Chloride 500 ml @ 125 mls/hr CONT PRN IV EXCESSIVE POST- BLEEDING; Start 10/08/19 at 09:45; Stop 10/08/19 at 17:44; Status DC Ibuprofen (Motrin) 800 mg PRN Q8HRS PRN PO INFLAMMATION; Start 10/08/19 at 09:45 Ondansetron HCl (Zofran) 4 mg PRN Q6HRS PRN IV NAUSEA/VOMITING; Start 10/08/19 at 09:45 Docusate Sodium (Colace) 100 mg PRN BID PRN PO HARD STOOL Last administered on 10/10/19at 10:47; Start 10/08/19 at 09:45 Al Hydroxide/Mg Hydroxide (Mylanta Plus Xs) 30 ml PRN Q4HRS PRN PO HEARTBURN / GAS; Start 10/08/19 at 09:45 Simethicone (Gas-X) 80 mg PRN AFTMEALHC PRN PO GAS / BLOATING; Start 10/08/19 at 09:45 Diphenhydramine HCl (Benadryl Oral Elixir) 12.5 mg PRN Q6HRS PRN PO ITCHING; Start 10/08/19 at 09:45 Ferrous Sulfate (Feosol) 325 mg BIDWMEALS PO Last administered on 10/10/19at 10:47; Start 10/08/19 at 17:00 Zolpidem Tartrate (Ambien) 5 mg PRN QHS PRN PO INSOMNIA, MAY REPEAT X1; Start 10/08/19 at 09:45 Oxycodone/ Acetaminophen (Percocet 5/325) 2 tab PRN Q4HRS PRN PO MODERATE PAIN, SEVERE PAIN Last administered on 10/10/19 10:48; Start 10/08/19 at 09:45 Ketorolac Tromethamine (Toradol 30mg Vial) 30 mg PRN Q6HRS PRN IV PAIN Last administered on 10/09/19at 08:11; Start 10/08/19 at 09:45; Stop 10/10/19 at 07:21; Status DC Multivitamins (Thera M Plus) 1 tab DAILY PO Last administered on 10/10/19 10:47; Start 10/09/19 at 09:00 Fentanyl Citrate 30 ml @ 0 mls/hr CONT PRN PRN IV PER PROTOCOL Last administered on 10/08/19at 10:24; Start 10/08/19 at 09:45 Naloxone HCl (Narcan) 0.4 mg PRN Q2MIN PRN IV SEE INSTRUCTIONS; Start 10/08/19 at 09:45 Sodium Chloride 1,000 ml @ 25 mls/hr Q24H IV ; Start 10/08/19 at 09:34 Ketorolac Tromethamine (Toradol 30mg Vial) 30 mg PRN Q6HRS PRN IV PAIN; Start 10/08/19 at 10:15; Stop 10/13/19 at 10:14 Ampicillin Sodium/ Sulbactam Sodium 2 gm/Sodium Chloride 100 ml @ 200 mls/hr Q6HRS IV ; Start 10/09/19 at 00:00; Status UNV Gentamicin Sulfate 230 mg/ Sodium Chloride 105.75 ml @ 105.75 mls/hr Q24H IV Last administered on 10/09/19at 22:03; Start 10/08/19 at 22:00 Acetaminophen (Tylenol) 1,000 mg PRN Q6HRS PRN PO FEVER > 100.3'F Last administered on 10/09/19at 08:10; Start 10/08/19 at 21:15 Ampicillin Sodium 2 gm/Sodium Chloride 100 ml @ 200 mls/hr Q6HRS IV Last administered on 10/10/19at 05:39; Start 10/08/19 at 23:00 Magnesium Hydroxide (Milk Of Magnesia) 2,400 mg PRN DAILY PRN PO CONSTIPATION Last administered on 10/10/19at 10:46; Start 10/10/19 at 07:15 Exam Abd: soft, mild tenderness, fundus firm Incision site: clean, dry and intact Assessment POD#2 s/p c/s Post endometritis Plan of Care: Continue current Tx, Mgmt (continue IV abx. If afebrile 36-48 hours, then d/c home tomorrow.) SHANEKA SIGALA Jr, MD Oct 10, 2019 12:17
[2019-10-10] MEDS: IBUPROFEN 400 MG TABLET. PO PRN (16:10)
[2019-10-10 17:51] VITALS: BP 106/72
[2019-10-10 20:48] VITALS: BP 110/69
[2019-10-10] MEDS: GENTAMICIN SULFATE 230 MG in IV NORMAL SALINE 100ML 100 ML IV SCH (22:34)
[2019-10-11] MEDS: AMPICILLIN SODIUM 2 GM in IV NORMAL SALINE 100ML 100 ML IV SCH ×3 (01:04→14:11)
[2019-10-11] MEDS: oxyCODONE/APAP 5/325 1 TAB TABLET PO PRN ×3 (05:54→17:18)
[2019-10-11] MEDS: IBUPROFEN 400 MG TABLET. PO PRN (05:54)
[2019-10-11 06:00] VITALS: BP 114/62
[2019-10-11] MEDS: DOCUSATE SODIUM 100 MG CAPSULE. PO PRN ×2 (08:58→17:18)
[2019-10-11] MEDS: FERROUS SULFATE 325 MG TABLET. PO SCH (08:58)
[2019-10-11] MEDS: MULTIVITAMIN with MINERAL TABLET. PO SCH (09:00)
--- NOTE | 2019-10-11 09:00 | NUR ---
nurses note: client did not want to take MV with iron and colace this AM
[2019-10-11 11:30] VITALS: BP 118/64
--- NOTE | 2019-10-11 13:42 | PDOC3 ---
OB DISCHARGE SUMMARY DATE OF ADMISSION: 10/08/19 DATE OF DISCHARGE: 10/11/19 REASON FOR ADMISSION: Onset of labor INTRAPARTUM PROCEDURES: : Low Cerv Trans PROCEDURES: Antibiotics (Post endometritis) DISCHARGE DIAGNOSIS: Term Delivered DISCHARGE INFORMATION: Activity (ad elroy), Diet (regular), Instructions (pelvic rest x 6 wks, no driving x 2 wks, no lifting > 20 lbs. x 6 wks) HOSPITAL COURSE Term gestation delivered section without difficulty. Pt. developed post endometritis and treated IV abx until afebril 36 - 48 hours. SHANEKA SIGALA Jr, MD Oct 11, 2019 13:42
--- NOTE | 2019-10-11 13:43 | DISCH ---
DISCHARGE INSTRUCTIONS Condition on Discharge Condition on Discharge: Stable Activity After Discharge Activity Instructions for Disc: Activity as tolerated Lifting Instructions after Dis: No heavy lifting Driving Instructions after Dis: No driving for 2 weeks Diet after Discharge Diet after Discharge: Regular Contacting the DRNicky after DC Call your doctor for: Concerns you may have Follow-Up Follow up with: Dr. Cooney in 2 wks SHANEKA COONEY Jr, MD Oct 11, 2019 13:43
[2019-10-11] MEDS ORDERED: DOCU-153 PO (13:45)
[2019-10-11] MEDS ORDERED: IBUP-1027 PO (13:45)
[2019-10-11] MEDS ORDERED: OXYC1TAB15 PO (13:45)
[2019-10-11 15:30] LABS: BASO % 1 % (0-3); EOS # 0.2 x10^3/uL (0.0-0.7); EOS % 2 % (0-3); HEMATOCRIT 28.8 % (36.0-47.0); HEMOGLOBIN 9.8 g/dL (12.0-15.5); LYMPH % 20 % (24-48); MEAN CORPUSCULAR HEMOGLOBIN 33 pg (25-35); MEAN CORPUSCULAR HGB CONC 34 g/dL (31-37); MEAN CORPUSCULAR VOLUME 98 fL (79-100); MONO # 0.4 x10^3/uL (0.0-1.1); MONO % 4 % (0-9); NEUT # 7.5 x10^3/uL (1.8-7.7); NEUT % 74 % (31-73); PLATELET COUNT 363 x10^3/uL (140-400); RED BLOOD COUNT 2.94 x10^6/uL (3.50-5.40); RED CELL DISTRIBUTION WIDTH 14.4 % (11.5-14.5); WHITE BLOOD COUNT 10.2 x10^3/uL (4.0-11.0)
--- NOTE | 2019-10-11 16:30 | NUR ---
nurses notes: dc instructions given to and discussed with patient and spouse through bilingual hr generalist #[id number]. verbalized understanding.
[2019-10-11 17:35] VITALS: BP 125/70
== END 2019-10-11 17:45 | disposition home or self-care (01) | DRG 787 ==
LOC: OBSVTOIN 00:43 → 3 SO LND 00:43 → 3 NORTH 14:13
PROVIDERS: ADMIT Obstetrics & Gynecology; ATTEND Obstetrics & Gynecology
PROC: 10D00Z1 Extraction of Products of Conception, Low, Open Approach (ICD-10-PCS; principal; 2019-10-08)
DX: O77.9 Labor and delivery complicated by fetal stress, unspecified (principal); O86.12 Endometritis following delivery; Z37.0 Single live birth; O62.2 Other uterine inertia; Z3A.37 37 weeks gestation of pregnancy; Z03.818 Encounter for observation for suspected exposure to other biological agents ruled out
CPT/HCPCS: 36415; 76815; 80307; 81001; 85007; 85025; 86592; 86850; 86900; 86901; 87086; 87426; J0290; J0330; J0595; J0690; J1100; J1580; J1885; J2274; J2370; J2405; J2590; J2704; J3010; J7120; G0378; U0003-CS